=== PATIENT | male | born 1960 | race Asian ===

== ENCOUNTER 2018-04-16 19:30 | Emergency (ER) | payer SELFPAY ==
[~2018-04-16] VITALS: Ht 180.3 cm; Wt 153.1 kg
[~2018-04-16 19:30] MED LIST: ALLO100T30 PO; ALLO300T PO; ATOR20TA37 PO; BACI28.42 TP; COLC1TAB PO; ERTA1VIA IV; IBUP-1223 PO; INDO75CA3 PO; LISI-167 PO; METF500T17 PO; METO50TA82 PO; OMEP-110 PO; OXYC5TAB3 PO; POLY17PO5 PO; SULF1TAB24 PO; TRAM100T33 PO
[2018-04-16] MEDS ORDERED: SODIUM CHLORIDE FLUSH 10ML SYR IVF ONE (20:00)
[2018-04-16 21:03] LABS: BASOPHILS # (AUTO) 0.04 x10^3/uL (0-0.1); BASOPHILS % (AUTO) 1 % (0-1); EOSINOPHILS # (AUTO) 0.35 x10^3/uL (0-0.4); EOSINOPHILS % (AUTO) 4 % (1-7); LYMPHOCYTES # (AUTO) 1.68 x10^3/uL (1-3.4); LYMPHOCYTES % (AUTO) 20 % (22-44); MD NO; MEAN CORPUSCULAR HGB CONC 33.7 g/dL (33.2-36.2); MEAN CORPUSCULAR VOLUME 91.9 fL (81-97); MEAN PLATELET VOLUME 7.1 fL (7.4-10.4); MONOCYTES # (AUTO) 0.64 x10^3/uL (0.2-0.8); MONOCYTES % (AUTO) 8 % (2-9); NEUTROPHILS # (AUTO) 5.52 x10^3/uL (1.8-6.8); NEUTROPHILS % (AUTO) 67 % (42-75); PLATELET COUNT 296 x10^3/uL (130-400); RED BLOOD COUNT 5.73 x10^6/uL (4.38-5.82); RED CELL DISTRIBUTION WIDTH 14.9 % (9.4-14.8)
[2018-04-16 21:13] LABS: ALBUMIN 3.4 g/dL (3.4-5.0); ANION GAP 4 mmol/L (5-15); CALCIUM 8.5 mg/dL (8.5-10.1); CHLORIDE 108 mmol/L (98-107)
--- NOTE | 2018-04-16 21:21 | NUR ---
WAITING FOR IV FOR CT.
--- NOTE | 2018-04-16 23:39 | NUR ---
PT IN CT
--- NOTE | 2018-04-16 23:51 | NUR ---
rachel in ct took pt to 20 instead of lobby
[2018-04-17] MEDS ORDERED: HYDROcodone/APAP 5/325 TABLET PO ONE
--- NOTE | 2018-04-17 | NUR ---
STARTED 20G IV IN RIGHT FOREARM. SENT PT BACK TO ER WITH IV.
[2018-04-17] MEDS ORDERED: OMNIPAQUE 350 MG/ML, 100ML BOTTLE ONE (00:01)
--- NOTE | 2018-04-17 00:05 | NUR ---
PT TO ROOM [address] CARE ASSUMED AT THIS TIME. REPORT FROM CT STAFF. ERP AT BEDSIDE FOR EVALUATION. 57 Y/O M STATES "MONDAY NIGHT I WENT TO BED AND I WOKE UP MONDAY AND MY EYE WAS HURTING, RED, BURNING, AND SWOLLEN." DENIES ANY VISUAL CHANGES OR DIFFICULTY, ITCHING. +ORBITAL SWELLING, REDNESS NOTED. PUPILS MORENITA. CONT PULSE OX, BP MONITORS APPLED. VSS. CALL LIGHT IN REACH. DENIES ANY INJURY OR TRAUMA. FALL PRECAUTIONS IN PLACE. REPORTS 6/10 PAIN, AWAITING ORDERS. A&OX4.
[2018-04-17] MEDS ORDERED: HYDROcodone/APAP 5/325 TABLET ONE (00:22)
--- NOTE | 2018-04-17 00:31 | NUR ---
PT MEDICATED NOTED PER ORDER FOR 6/10 EYE PAIN. VSS. CALL LIGHT IN REACH. PT TALKING ON CELL PHONE.
--- NOTE | 2018-04-17 00:55 | NUR ---
BEDSIDE REPORT AND CARE TO AEJU RN AT THIS TIME.
[2018-04-17 01:22] VITALS: BP 144/80
--- NOTE | 2018-04-17 01:22 | NUR ---
TASK RN: DC EDUCATION PROVIDED, PT DEMONSTRATES UNDERSTANDING. PT AMBULATED STEADILY TO DC WITH RN.
== END 2018-04-17 01:24 | disposition home or self-care (01) ==
LOC: ED 23:59
DX: L03.213 Periorbital cellulitis (principal); E11.9 Type 2 diabetes mellitus without complications; I10 Essential (primary) hypertension; M10.9 Gout, unspecified; E78.5 Hyperlipidemia, unspecified; Z87.11 Personal history of peptic ulcer disease; Z95.0 Presence of cardiac pacemaker
CPT/HCPCS: 36415; 70481; 80048; 82040; 85025; 99284; Q9967